=== PATIENT | female | born 1995 | race African-American/Black ===

== ENCOUNTER 2018-11-15 09:59 | Inpatient (IN) ==
[2018-11-15 10:51] LABS: Basophils % 0.4 %; Eosinophils # 0.1 K/mcL (0.0-0.6); Eosinophils % 1.8 %; Hematocrit 33.4 % (35.3-44.9); Hemoglobin 10.7 g/dL (11.5-15.4); Immature Granulocytes % 0.4 % (0-4); Lymphocytes # 2.2 K/mcL (0.6-4.6); Lymphocytes % 28.2 %; Mean Corpuscular Hemoglobin 27.3 pg (28.0-33.3); Mean Corpuscular Volume 85.2 fL (83.0-100.0); Mean Platelet Volume 10.4 fL (9.4-12.4); Monocytes # 0.8 K/mcL (0.0-1.3); Monocytes % 10.2 %; Neutrophils # 4.7 K/mcL (1.6-8.9); Platelet Count 291 K/mcL (140-400); Red Blood Count 3.92 M/mcL (3.82-4.97); Red Cell Distribution Width 14.2 % (11.5-14.5); White Blood Count 7.9 K/mcL (4.3-11.1)
[2018-11-15 11:00] LABS: Protein/Creatinine Ratio,Urine 1.88 mg/mg (0.00-0.20)
[2018-11-15 11:11] LABS: Alanine Aminotransferase 13 Units/L (7-52); Aspartate Amino Transferase 19 Units/L (13-39); BUN/Creatinine Ratio 13 (6-26); Blood Urea Nitrogen 8 mg/dL (6-20); Lactate Dehydrogenase 186 Units/L (140-271); Uric Acid 5.8 mg/dL (2.3-7.6); eGFR For African Americans > 60 (> 60); eGFR For Non-African Americans > 60 (> 60)
[2018-11-15] MEDS ORDERED: Famotidine 20 MG/2 ML VIAL IVP PRN (11:27)
[2018-11-15] MEDS ORDERED: Naloxone 0.4 MG/ML INJ IVP PRN (11:27)
[2018-11-15] MEDS ORDERED: Metoclopramide 10 MG/2 ML VIAL IVP PRN (11:27)
[2018-11-15] MEDS ORDERED: Ondansetron 4 MG/2 ML VIAL IVP PRN (11:34)
[2018-11-15] MEDS ORDERED: *HR* Nalbuphine 10 MG/ML AMPUL IVP PRN (11:34)
[2018-11-15] MEDS ORDERED: Ringers Solution, Lactated 1,000 ML IVC SCH (11:45)
[2018-11-15] MEDS ORDERED: Oxytocin 20 units/ LR 1000 mL 20 UNIT/1,000 ML BAG IVC ONE ×2 (13:05→21:37)
[2018-11-15] MEDS ORDERED: Oxytocin 20 units/ LR 1000 mL 20 UNIT/1,000 ML BAG IVC SCH ×3 (13:15→21:37)
[2018-11-15] MEDS ORDERED: *HR* FentaNYL (PF) 100 MCG/2 ML VIAL EP ONE (13:21)
[2018-11-15] MEDS ORDERED: Bupivacaine-MPF 0.25% 10 ML VIAL EP ONE (13:21)
[2018-11-15] MEDS ORDERED: Epidural Premix (fent/bupiv) 110 ML EP SCH (13:30)
[2018-11-15] MEDS ORDERED: *HR* Phenylephrine 10 MG/ML VIAL ONE (16:41)
[2018-11-15] MEDS ORDERED: 0.9 % Sodium Chloride 500 ML ONE (17:14)
[2018-11-15] MEDS ORDERED: Measles/Mumps/Rubella Vacc 0.5 ML VIAL SQ PRN ×2 (19:36→21:37)
[2018-11-15] MEDS ORDERED: Rho Immune Globulin 1,500 UNIT SYRINGE IM PRN (19:36)
[2018-11-15] MEDS ORDERED: Acetaminophen 325 MG TABLET PO PRN (19:36)
[2018-11-15] MEDS ORDERED: Benzocaine/Menthol 56 GM AEROSOL SPRAY TP PRN (21:37)
[2018-11-15] MEDS ORDERED: *HR* OxyCODONE Immed Rel 5 MG TABLET PO PRN (21:37)
[2018-11-15] MEDS ORDERED: Lanolin 28 GM TUBE TP PRN (21:37)
[2018-11-15] MEDS: Ibuprofen 400 MG TABLET PO PRN (21:58)
[2018-11-15] MEDS ORDERED: NIFEdipine 10 MG CAPSULE PO ONE (22:35)
[2018-11-16] MEDS: Magnesium Sulf 20 gm/SW 500mL 20 GM/500 ML IV.SOLN IVC SCH ×3 (01:05→19:46)
[2018-11-16] MEDS ORDERED: Calcium Gluconate 1,000 MG/10 ML VIAL ONE (01:54)
[2018-11-16] MEDS: NIFEdipine XL (24 HR) 30 MG TAB.ER.24 PO SCH (08:03)
[2018-11-16] MEDS: Prenatal Vit/FA 1 EACH TABLET PO SCH (08:04)
[2018-11-16] MEDS: Ibuprofen 400 MG TABLET PO PRN ×2 (08:06→16:47)
[2018-11-16] MEDS ORDERED: Prenatal Vit/FA 1 EACH TABLET PO SCH (09:00)
[2018-11-16 11:44] LABS: Basophils % 0.2 %; Eosinophils # 0.2 K/mcL (0.0-0.6); Eosinophils % 1.8 %; Immature Granulocytes % 0.3 % (0-4); Lymphocytes # 1.7 K/mcL (0.6-4.6); Lymphocytes % 14.8 %; Mean Corpuscular HGB Conc 32.3 g/dL (31.6-35.5); Mean Corpuscular Hemoglobin 27.2 pg (28.0-33.3); Mean Corpuscular Volume 84.5 fL (83.0-100.0); Mean Platelet Volume 9.6 fL (9.4-12.4); Monocytes # 0.9 K/mcL (0.0-1.3); Monocytes % 7.4 %; Neutrophils # 8.8 K/mcL (1.6-8.9); Platelet Count 246 K/mcL (140-400); Red Blood Count 3.67 M/mcL (3.82-4.97); Red Cell Distribution Width 14.4 % (11.5-14.5); Segmented Neutrophils % 75.5 %; White Blood Count 11.7 K/mcL (4.3-11.1)
[2018-11-16 12:07] LABS: Alanine Aminotransferase 12 Units/L (7-52); Aspartate Amino Transferase 24 Units/L (13-39); BUN/Creatinine Ratio 8 (6-26); Blood Urea Nitrogen 6 mg/dL (6-20); Lactate Dehydrogenase 310 Units/L (140-271); eGFR For African Americans > 60 (> 60); eGFR For Non-African Americans > 60 (> 60)
[2018-11-16] MEDS ORDERED: Ringers Solution, Lactated 1,000 ML ONE (14:23)
[2018-11-16] MEDS ORDERED: Ringers Solution, Lactated 1,000 ML IVC SCH (14:45)
[2018-11-16] MEDS: Acetaminophen 325 MG TABLET PO PRN ×2 (15:01→20:46)
[2018-11-17] MEDS: Ibuprofen 400 MG TABLET PO PRN ×3 (00:26→10:33)
[2018-11-17 08:34] VITALS: BP 143/92
[2018-11-17] MEDS: Prenatal Vit/FA 1 EACH TABLET PO SCH (09:14)
[2018-11-17] MEDS: NIFEdipine XL (24 HR) 30 MG TAB.ER.24 PO SCH (09:14)
[2018-11-17] MEDS: Acetaminophen 325 MG TABLET PO PRN (09:15)
== END 2018-11-17 14:00 | disposition home or self-care (01) | DRG 560 ==
LOC: 1NENULAB → OBSVTOIN 09:59 → 1NENUOBS 11-16 00:37 → UNDODISIN 11-16 20:34 → 1NENUOBS 11-16 20:42
PROVIDERS: ADMIT Registered Nurse; ATTEND Registered Nurse

== ENCOUNTER → 2021-06-09 18:40 | Observation (INO) ==
[2021-06-09 16:38] LABS: Basophils % 0.2 %; Eosinophils # 0.1 K/mcL (0.0-0.6); Hematocrit 30.4 % (35.3-44.9); Hemoglobin 9.8 g/dL (11.5-15.4); Immature Granulocytes % 0.4 % (0-4); Lymphocytes # 1.4 K/mcL (0.6-4.6); Lymphocytes % 24.5 %; Mean Corpuscular HGB Conc 32.2 g/dL (31.6-35.5); Mean Corpuscular Hemoglobin 27.1 pg (28.0-33.3); Mean Platelet Volume 9.6 fL (9.4-12.4); Monocytes # 0.4 K/mcL (0.0-1.3); Monocytes % 7.6 %; Neutrophils # 3.6 K/mcL (1.6-8.9); Platelet Count 250 K/mcL (140-400); Red Blood Count 3.62 M/mcL (3.82-4.97); Red Cell Distribution Width 13.6 % (11.5-14.5); Segmented Neutrophils % 65.3 %; White Blood Count 5.5 K/mcL (4.3-11.1)
[2021-06-09 16:46] LABS: Protein/Creatinine Ratio,Urine 0.3 mg/mg (0.00-0.20)
[2021-06-09 16:56] LABS: Alanine Aminotransferase 10 Units/L (7-52); Aspartate Amino Transferase 14 Units/L (13-39); BUN/Creatinine Ratio 9 (6-26); Blood Urea Nitrogen 5 mg/dL (6-20); Lactate Dehydrogenase 132 Units/L (140-271); Uric Acid 3.9 mg/dL (2.3-7.6); eGFR For African Americans > 60 (> 60); eGFR For Non-African Americans > 60 (> 60)
[~2021-06-09 18:40] MED LIST: *HR* Nalbuphine 10 MG/ML AMPUL IV ONE; *HR* Nalbuphine 10 MG/ML AMPUL ONE; Acetaminophen 325 MG TABLET PO ONE; Prochlorperazine 10 MG/2 ML VIAL IVP ONE
== END | disposition home or self-care (01) ==
LOC: 1NENULAB
PROVIDERS: ADMIT Obstetrics & Gynecology; ATTEND Obstetrics & Gynecology